=== PATIENT | female | born 1950 | race Caucasian/White ===

== ENCOUNTER 2025-04-13 11:45 | Emergency (ER) | payer OTHER, SELFPAY ==
[2025-04-13 11:49] VITALS: BP 127/88
[2025-04-13 12:54] VITALS: BP 123/72
[2025-04-13 13:00] VITALS: BP 114/73
[2025-04-13 13:07] VITALS: BMI 26.2
[2025-04-13 13:11] LABS: % Basophils 0.5 % (0-2); % Eosinophils 1.7 % (0-6); % Immature Granulocytes 0.2 % (0-0.5); % Lymphocytes 21.4 % (20.5-51.1); % Monocytes 10.5 % (1.7-9.3); % Neutrophils 65.7 % (42.2-75.2); Absolute Eosinophils 0.1 10^3/uL (0-0.7); Absolute Lymphocytes 1.3 10^3/uL (1.2-3.4); Absolute Monocytes 0.6 10^3/uL (0.1-0.6); Absolute Neutrophils 3.9 10^3/uL (1.4-6.5); Hematocrit 37.4 % (37.0-47.0); Hemoglobin 13.2 g/dL (12.0-16.0); Mean Corp Hgb Conc. 35.3 g/dL (33.0-37.0); Mean Corpuscular Volume 87.8 fL (81.0-99.0); Mean Platelet Volume 9.5 fL (7.4-10.4); Nucleated Red Blood Cells % 0 %; Platelet Count 210 10^3/uL (130-400); Red Blood Cell Count 4.26 10^6/uL (4.20-5.40); White Blood Cell Count 5.9 10^3/uL (4.8-10.8)
--- NOTE | 2025-04-13 13:28 | ED.GENMED ---
History of Present Illness
General
Chief Complaint: Abdominal Symptoms
Time Seen by Provider: 04/13/25 12:10
History of Present Illness
History of Present Illness:
74-year-old female with history of hypertension presenting to the emergency department for abdominal bloating and lower back pain. Patient reports symptoms for the past week. She does note that she frequently gets urinary tract infections. She
saw her primary care doctor who checked her urine this week, noticed that it was normal. She then sent her for ultrasound of her kidneys and told her that they saw some cysts. They advised that she come to the hospital for 'MRI '. Patient denies
any renal issues. Reports history of cholecystectomy. She denies any nausea, vomiting, changes in stool. She denies fever. She denies any present urinary complaints. She denies additional acute medical complaints.
Phy Exam
Physical Exam
Physical Exam:
General: Well-appearing, no clinical signs of dehydration, nontoxic and in no acute distress
HEENT: protecting airway
Neck: appears supple
CV: Normal heart rate, regular rhythm
Resp: No accessory muscle use, no increased work of breathing, lungs clear to auscultation bilaterally
Abd: Soft and non-distended, mild generalized nonfocal tenderness
Extremities: No deformities, no swelling, no erythema, pulses and sensation intact
Neuro: alert, no focal neurologic deficit
: deferred
Rectal: deferred
Psych: Normal affect
Skin: Intact
Course
Orders/Labs/Results
Orders:
Orders
04/13/25 12:44
CT Abd/pelvis W Iv Cont Urgent
Comment:
Reason For Exam: lower abd discomfort, back pain x 1 week
04/13/25 12:56
Complete Blood Count/With Diff Urgent
Comprehensive Metabolic Panel Urgent
Lipase Urgent
04/13/25 14:16
Urinalysis Reflex To Culture Urgent
Date Specimen was Collected: 04/13/25
Time Specimen was Collected: 14:10
Abnormal Lab Results
04/13/25
12:56
Monocytes % 10.5 H %
(1.7-9.3)
Carbon Dioxide 31 H mmol/L
(22-30)
BUN 22 H mg/dl
(7-17)
04/13/25 12:56
04/13/25 12:56
Vital Signs
Initial and Last Documented VS:
Initial Vital Signs
Temp Pulse Resp BP Pulse Ox
98.0 F 91 16 127/88 98
04/13/25 11:49 04/13/25 11:49 04/13/25 11:49 04/13/25 11:49 04/13/25 11:49
Last Documented Vital Signs
Temp Pulse Resp BP Pulse Ox
98.0 F 78 29 116/97 100
04/13/25 11:49 04/13/25 14:45 04/13/25 14:45 04/13/25 14:00 04/13/25 14:45
MDM/Problems Addressed
MDM/Problems Addressed:
74-year-old female presenting for lower abdominal bloating and back pain for a week. Vital signs on arrival are normal
On exam patient is well-appearing, no acute distress. Reassuring examination. Patient sent in by primary care doctor for advanced imaging. Patient reports she was sent in for MRI, explained that this is not a typical test of again the ER. Will
start with CT abdominal imaging, with reported outpatient abnormal ultrasound of the kidneys. Will also obtain laboratory analysis and urinalysis.
16:00 -CT without acute pathology. There is mention of renal cysts, however no hydronephrosis or concerning findings. Incidental pulmonary nodule that will require follow-up. Otherwise feel stable for discharge. Return precautions discussed and
patient verbalized understanding
*Critical Care Note
Total Time (30-74mins, 75-104mins- exclusive of procedures): Not Applicable
ED Attending Note
-
Portions of this chart may have been created with voice recognition software.� Occasional wrong word or��sound alike� substitutions may have occurred due to the inherent limitations of voice recognition software.
Discharge Plan
Departure
Patient with high blood pressure during this ER visit?: No
Condition: Good
Discharge Problem:
Abdominal pain
Instructions: Abdominal Pain
Referrals:
Sony Arroyo MD [Family Provider, [facility]]
Activity Restrictions/Additional Instructions:
You were seen in the emergency department for abdominal pain
You were found to have normal labs, urinalysis, CT abdominal imaging. Please follow-up closely with your primary care doctor.
Return to the emergency department for any worsening of your symptoms, or any development of chest pain, difficulty breathing, abdominal pain with persistent vomiting and inability to tolerate food or liquid by mouth (concern for dehydration),
weakness, headache or confusion, fever greater than 100.4, or any additional symptoms that are concerning to you.
Thank you for choosing [facility].
Interventions
Interventions:
*Risk Screen - Suicide Last Done: 04/13/25 11:49
*General Assessment Last Done: 04/13/25 13:07
*Neglect/Abuse Screening Last Done: 04/13/25 11:49
*ED- Fall Risk Assessment Last Done: 04/13/25 13:07
*ED COVID-19 Vaccine History Last Done: 04/13/25 13:07
TY-Ywindu-Uamuhfjcvy Assessment Last Done: 04/13/25 13:08
Discharge Date and Time
Print Language: IRISH
[2025-04-13 13:29] LABS: ALT (SGPT) 19 U/L (0-35); AST (SGOT) 26 U/L (14-36); Alkaline Phosphatase 67 U/L (38-126); Blood Urea Nitrogen 22 mg/dl (7-17); Calcium 9.8 mg/dl (8.4-10.2); Carbon Dioxide 31 mmol/L (22-30); Chloride 106 mmol/L (98-107); Estimated Creatinine Clearance 50 ml/min; Glucose 87 mg/dl (70-99); Lipase 142 U/L (23-300); Potassium 4.7 mmol/L (3.5-5.1); Sodium 138 mmol/L (135-145); Total Bilirubin 0.6 mg/dl (0.2-1.3); Total Protein 6.7 g/dl (6.3-8.2); eGFR > 60.00
[2025-04-13 14:00] VITALS: BP 116/97
[2025-04-13 14:50] LABS: Urine Albumin Negative (Neg - Trace); Urine Bilirubin Negative (Negative); Urine Character Clear (Clear); Urine Color Yellow; Urine Glucose Negative (Negative); Urine Ketone Negative (Negative); Urine Leukocyte Negative (Negative); Urine Nitrite Negative (Negative); Urine Occult Blood Negative (Negative); Urine Urobilinogen Negative (Neg - 1+)
[2025-04-13 15:27] VITALS: BP 120/65
[2025-04-13 16:00] VITALS: BP 135/66
== END 2025-04-13 16:27 | disposition home or self-care (01) ==
LOC: EMR 11:45
PROVIDERS: EMERGENCY PHYSICIAN Student in an Organized Health Care Education/Training Program; FAMILY PHYSICIAN Family Medicine
DX: R10.30 Lower abdominal pain, unspecified (principal); R14.0 Abdominal distension (gaseous); M54.50 Low back pain, unspecified; R91.1 Solitary pulmonary nodule; N28.1 Cyst of kidney, acquired; Z90.49 Acquired absence of other specified parts of digestive tract; Z87.440 Personal history of urinary (tract) infections; Z88.5 Allergy status to narcotic agent
CPT/HCPCS: 99284; 74177; 80053; 81003; 83690; 85025; Q9967